=== PATIENT | male | born 1995 ===

== ENCOUNTER 2020-09-22 15:28 | Emergency (ER) | payer OTHER ==
[2020-09-22] MEDS ORDERED: Lidocaine 1% 10 ML MDV INJECT ONE (15:50)
[2020-09-22] MEDS ORDERED: Lidocaine HCl/PF 10 MG/ML SDV INJECT ONE (15:58)
[2020-09-22] MEDS ORDERED: Bacitracin Oint 1 GM U/D Packet TOP ONE (16:14)
--- NOTE | 2020-09-22 16:20 | EDM.PDOC ---
ED HPI GENERAL MEDICAL PROBLEM - General Chief Complaint: Laceration Stated Complaint: FINGER LACERATION Time Seen by Provider: 09/22/20 15:28 Source of Information: Reports: Patient History Limitations: Reports: No Limitations - History of Present Illness INITIAL COMMENTS - FREE TEXT/NARRATIVE: Patient states he was closing the Topper on his pickup bed when he caught his finger in the mechanics. Laceration over the PIP joint of the second finger. Tetanus up-to-date. Right Finger-Index Pain Score (Numeric/FACES): 8 - Related Data Allergies Allergy/AdvReac Type Severity Reaction Status Date / Time No Known Allergies Allergy Verified 09/22/20 15:39 Home Meds: Home Meds . [No Known Home Meds] 09/22/20 [History] Past Medical History - Past Health History Medical/Surgical History: Denies Medical/Surgical History - Infectious Disease History Infectious Disease History: Reports: Chicken Pox Social & Family History - Tobacco Use Tobacco Use Status *Q: Never Tobacco User - Caffeine Use Caffeine Use: Reports: Coffee - Recreational Drug Use Recreational Drug Use: No ED ROS GENERAL - Review of Systems Review Of Systems: Comprehensive ROS is negative, except as noted in HPI. ED EXAM, SKIN/RASH Exam: See Below Exam Limited By: No Limitations General Appearance: Alert, No Apparent Distress Ears: Normal External Exam Nose: Normal Inspection Throat/Mouth: Normal Inspection Head: Atraumatic, Normocephalic Neck: Normal Inspection Respiratory/Chest: No Respiratory Distress Cardiovascular: Normal Peripheral Pulses Back Exam: Normal Inspection Extremities: Other (Second digit dorsal PIP joint semicircular laceration and abrasion. Full range of motion of all joints of the right second digit, flex and extend. CMS intact distally.) Neurological: Alert Psychiatric: Normal Affect Lymphatic: No Adenopathy ED SKIN PROCEDURES - Laceration/Wound Repair Right Digit - 2nd (Index) Appearance: Superficial Distal NVT: Neuro & Vascular Intact Anesthetic Type: Local Local Anesthesia - Lidocaine (Xylocaine): 1% Plain Local Anesthetic Volume: 5cc Skin Prep: Chlorhexidine (Hibiciens) Exploration/Debridement/Repair: Wound Explored, In a Bloodless Field, Explored to Base Closed with: Sutures Lac/Wound length In cm: 3 Suture Size: 4-0 # of Sutures: 5 Suture Type: Nylon, Simple Course - Vital Signs Last Recorded V/S: Last Vital Signs Temp 36.5 C 09/22/20 15:40 Pulse 73 09/22/20 15:40 Resp 20 09/22/20 15:40 BP 135/63 09/22/20 15:40 Pulse Ox 97 09/22/20 15:40 - Orders/Labs/Meds Orders: Active Orders 24 hr Category Date Time Status Bacitracin [Bacitracin Oint 1 GM] Med 09/22/20 16:14 Once 1 dose TOP ONETIME ONE Meds: Medications Discontinued Medications Generic Name Dose Route Start Last Admin Trade Name Zachery PRN Reason Stop Dose Admin Lidocaine HCl 10 ml 09/22/20 15:50 09/22/20 15:57 Xylocaine 1% INJECT 09/22/20 15:51 Not Given ONETIME ONE Lidocaine HCl Confirm 09/22/20 15:52 09/22/20 15:57 Xylocaine-Mpf 1% Administered 09/22/20 15:53 Not Given Dose 10 ml .ROUTE .STK-MED ONE Lidocaine HCl 100 mg 09/22/20 15:58 09/22/20 16:02 Xylocaine-Mpf 1% Sdv INJECT 09/22/20 15:59 Not Given ONETIME ONE Lidocaine HCl 10 ml 09/22/20 16:01 09/22/20 16:02 Xylocaine-Mpf 1% INJECT 09/22/20 16:02 10 ml ONETIME ONE Administration Departure - Departure Time of Disposition: 16:22 Disposition: Home, Self-Care 01 Condition: Good Clinical Impression: Laceration - Discharge Information Referrals: PCP,None [Primary Care Provider] - [facility] [Outside] Additional Instructions: The following information is given to patients seen in the emergency department who are being discharged to home. This information is to outline your options for follow-up care. We provide all patients seen in our emergency department with a follow-up referral. The need for follow-up, as well as the timing and circumstances, are variable depending upon the specifics of your emergency department visit. If you don't have a primary care physician on staff, we will provide you with a referral. We always advise you to contact your personal physician following an emergency department visit to inform them of the circumstance of the visit and for follow-up with them and/or the need for any referrals to a consulting specialist. The emergency department will also refer you to a specialist when appropriate. This referral assures that you have the opportunity for follow-up care with a specialist. All of these measure are taken in an effort to provide you with optimal care, which includes your follow-up. Under all circumstances we always encourage you to contact your private physician who remains a resource for coordinating your care. When calling for follow-up care, please make the office aware that this follow-up is from your recent emergency room visit. If for any reason you are refused follow-up, please contact the [facility] Emergency Department at and asked to speak to the emergency department charge nurse. 1. Suture removal 10 to 14 days at walk-in clinic, emergency room or primary care clinic 2. For signs of infection: Redness, swelling, purulent drainage report promptly Sepsis Event Note (ED) - Evaluation Sepsis Screening Result: No Definite Risk - Focused Exam Vital Signs: Vital Signs Temp Pulse Resp BP Pulse Ox 09/22/20 15:40 36.5 C 73 20 135/63 97 - My Orders Last 24 Hours: My Active Orders 09/22/20 16:14 Bacitracin [Bacitracin Oint 1 GM] 1 dose TOP ONETIME ONE - Assessment/Plan Last 24 Hours: My Active Orders 09/22/20 16:14 Bacitracin [Bacitracin Oint 1 GM] 1 dose TOP ONETIME ONE
== END 2020-09-22 16:30 | disposition home or self-care (01) ==
LOC: MW.ED 15:28
DX: S61.210A Laceration without foreign body of right index finger without damage to nail, initial encounter (principal); W23.0XXA Caught, crushed, jammed, or pinched between moving objects, initial encounter
CPT/HCPCS: 12002; 99282; J2001

== ENCOUNTER 2021-03-03 06:34 | Day surgery (SDC) | payer OTHER ==
[~2021-03-03 06:34] MED LIST: Lactated Ringers 1,000 ML IV SCH; Sodium Chloride 0.9% 10 ML SDV IV PRN; Sodium Chloride 0.9% 10 ML Syringe FLUSH PRN; Sodium Chloride 0.9% 2.5 ML Syringe FLUSH PRN; ceFAZolin 1 GM in Premix Bag 1 BAG IV ONE; ceFAZolin 1 GM in Premix Bag 1 BAG IV SCH
[2021-03-03] MEDS ORDERED: Propofol 200 MG/20 ML SDV ONE (06:53)
[2021-03-03] MEDS ORDERED: Midazolam 1 MG/ML 2 ML SDV ONE (06:53)
[2021-03-03] MEDS ORDERED: fentaNYL 250 MCG/5 ML SDV ONE (06:53)
[2021-03-03] MEDS ORDERED: Ondansetron 4 MG/2 ML SDV ONE (06:57)
--- NOTE | 2021-03-03 07:22 | PCM.PREANE ---
Preanesthetic Assessment - Anesthesia/Transfusion/Family Hx Anesthesia History: No Prior Anesthesia Family History of Anesthesia Reaction: No Transfusion History: No Prior Transfusion(s) - Review of Systems General: No Symptoms Pulmonary: No Symptoms Cardiovascular: No Symptoms Gastrointestinal: No Symptoms Neurological: No Symptoms Other: Reports: None - Physical Assessment NPO Status Date: 03/03/21 NPO Status Time: 00:01 Vital Signs: Last Vital Signs Temp 97.5 F 03/03/21 06:48 Pulse 55 L 03/03/21 06:48 Resp 16 03/03/21 06:48 BP 112/75 03/03/21 06:48 Pulse Ox 98 03/03/21 06:48 Height: 6 ft 4 in Weight: 177 lb ASA Class: 1 Mental Status: Alert & Oriented x3 Airway Class: Mallampati = 2 Dentition: Reports: Normal Dentition ROM/Head Extension: Full Lungs: Clear to Auscultation, Normal Respiratory Effort Cardiovascular: Regular Rate, Regular Rhythm - Allergies Allergies/Adverse Reactions: Allergies Allergy/AdvReac Type Severity Reaction Status Date / Time No Known Allergies Allergy Verified 02/24/21 09:27 - Anesthesia Plan Pre-Op Medication Ordered: None - Acknowledgements Anesthesia Type Planned: General Anesthesia Pt an Appropriate Candidate for the Planned Anesthesia: Yes Alternatives and Risks of Anesthesia Discussed w Pt/Guardian: Yes Pt/Guardian Understands and Agrees with Anesthesia Plan: Yes Additional Comments: npo after mn no cv or pulmonary or any medical issues tob none etoh none par no questions PreAnesthesia Questionnaire - Past Health History Medical/Surgical History: Denies Medical/Surgical History HEENT History: Reports: Other (See Below) Other HEENT History: wears glasses Musculoskeletal History: Reports: Fracture Other Musculoskeletal History: hyx of fx left wrist and right ankle Neurological History: Reports: Concussion - Infectious Disease History Infectious Disease History: Reports: Chicken Pox - Past Surgical History Head Surgeries/Procedures: Reports: None - SUBSTANCE USE Tobacco Use Status *Q: Never Tobacco User Recreational Drug Use History: No - HOME MEDS Home Medications: Home Meds . [No Known Home Meds] 09/22/20 [History] - CURRENT (IN HOUSE) MEDS Current Meds: Current Medications Lactated Ringer's (Ringers, Lactated) 1,000 mls @ 100 mls/hr IV ASDIRECTED [facility] Last Admin: 03/03/21 06:54 Dose: 100 mls/hr Documented by: Cefazolin Sodium/Dextrose 1 gm (/ Premix) 50 mls @ 100 mls/hr IV ONCALL KRISS Sodium Chloride (Sodium Chloride 0.9% 10 Ml Syringe) 10 ml FLUSH ASDIRECTED PRN PRN Reason: Keep Vein Open Sodium Chloride (Sodium Chloride 0.9% 2.5 Ml Syringe) 2.5 ml FLUSH ASDIRECTED PRN PRN Reason: Keep Vein Open Sodium Chloride (Sodium Chloride 0.9% 10 Ml Sdv) 10 ml IV ASDIRECTED PRN PRN Reason: IV Use Discontinued Medications Fentanyl (Fentanyl 250 Mcg/5 Ml Sdv) Confirm Administered Dose 250 mcg .ROUTE .STK-MED ONE Stop: 03/03/21 06:54 Lactated Ringer's (Ringers, Lactated) 1,000 mls @ 100 mls/hr IV ASDIRECTED KRISS Cefazolin Sodium/Dextrose 1 gm (/ Premix) 50 mls @ 100 mls/hr IV ONETIME ONE Stop: 02/16/21 06:29 Lidocaine HCl (Lidocaine 1% 5 Ml Sdv) Confirm Administered Dose 5 ml .ROUTE .STK-MED ONE Stop: 03/03/21 07:00 Midazolam HCl (Midazolam 1 Mg/Ml 2 Ml Sdv) Confirm Administered Dose 2 mg .ROUTE .STK-MED ONE Stop: 03/03/21 06:54 Ondansetron HCl (Ondansetron 4 Mg/2 Ml Sdv) Confirm Administered Dose 4 mg .ROUTE .STK-MED ONE Stop: 03/03/21 06:58 Propofol (Propofol 200 Mg/20 Ml Sdv) Confirm Administered Dose 200 mg .ROUTE .STK-MED ONE Stop: 03/03/21 06:54 Sodium Chloride (Sodium Chloride 0.9% 10 Ml Syringe) 10 ml FLUSH ASDIRECTED PRN PRN Reason: Keep Vein Open Sodium Chloride (Sodium Chloride 0.9% 2.5 Ml Syringe) 2.5 ml FLUSH ASDIRECTED PRN PRN Reason: Keep Vein Open Sodium Chloride (Sodium Chloride 0.9% 10 Ml Sdv) 10 ml IV ASDIRECTED PRN PRN Reason: IV Use
[2021-03-03] MEDS ORDERED: ceFAZolin 1 GM Vial ONE ×2 (07:29→08:23)
[2021-03-03] MEDS ORDERED: Sodium Chloride 0.9% 20 ML ONE (07:29)
[2021-03-03] MEDS ORDERED: Bupivacaine 0.25% 10 ML SDV ONE (07:39)
[2021-03-03] MEDS ORDERED: Bupivacaine 0.5% 10 ML SDV ONE (07:39)
[2021-03-03] MEDS ORDERED: Lidocaine 1% with EPINEPHrine 1:100,000 20 ML MDV ONE (07:39)
[2021-03-03] MEDS ORDERED: Lidocaine 1% 20 ML MDV ONE (07:40)
[2021-03-03] MEDS ORDERED: Dexamethasone 4 MG/ML 5 ML MDV ONE (08:24)
[2021-03-03] MEDS ORDERED: fentaNYL 100 MCG/2 ML SDV IVPUSH PRN (09:18)
[2021-03-03] MEDS ORDERED: Ketorolac 30 MG/ML SDV IM ONE (09:59)
[2021-03-03] MEDS ORDERED: Acetaminophen 1,000 MG in Premix Bag 1 BAG IV ONE (10:00)
--- NOTE | 2021-03-03 10:28 | PCM.POSTAN ---
POST ANESTHESIA ASSESSMENT - VITAL SIGNS Vital Signs: Last Vital Signs Temp 36.3 C 03/03/21 09:38 Pulse 61 03/03/21 10:18 Resp 8 L 03/03/21 10:18 BP 127/60 03/03/21 10:18 Pulse Ox 96 03/03/21 10:18 - RESPIRATORY Respiratory Status: Respiratory Rate WNL - CARDIOVASCULAR CV Status: Pulse Rate WNL - GASTROINTESTINAL GI Status: No Symptoms - POST OP HYDRATION Hydration Status: Adequate & Stable
--- NOTE | 2021-03-03 11:11 | OR ---
SURGEON: Arielle Bowman M.D. DATE OF PROCEDURE: 03/03/2021 PREOPERATIVE DIAGNOSIS: Bilateral varicoceles. POSTOPERATIVE DIAGNOSIS: Bilateral varicoceles. OPERATION: Bilateral spermatic vein ligation. DESCRIPTION: The patient was given general anesthesia. He was in the supine position. External genital and lower abdomen were all prepped and draped in sterile drapes. A small incision was made in the left groin. The dissection was carried out until the external oblique aponeurosis was opened, and the cord structures were delivered. There was a cord lipoma that was excised, and 2 medium-sized veins were identified and ligated. The spermatic artery was spared and pulse could be seen after the ligation was done in the distal part of the cord. With that done, external oblique aponeurosis was closed with a 3-0 silk. Subcutaneous tissues were reapproximated with 3-0 chromic and skin was closed with 4-0 subcuticular nylon. The exact same thing was done on the right side. The patient tolerated both procedures well and was moved to recovery room in good condition. He will come to the office in 6 days to have the sutures removed. CARLOS ALBERTO / CYNTHIA /[id number]
--- NOTE | 2021-03-03 12:03 | PCM48HPAN ---
Post Anesthesia Note - EVALUATION WITHIN 48HRS OF ANESTHETIC Vital Signs in Normal Range: Yes Patient Participated in Evaluation: Yes Respiratory Function Stable: Yes Airway Patent: Yes Cardiovascular Function Stable: Yes Hydration Status Stable: Yes Pain Control Satisfactory: Yes Nausea and Vomiting Control Satisfactory: Yes Mental Status Recovered: Yes Vital Signs: Last Vital Signs Temp 97.3 F 03/03/21 10:25 Pulse 54 L 03/03/21 11:40 Resp 14 03/03/21 11:40 BP 118/62 03/03/21 11:40 Pulse Ox 98 03/03/21 11:40
== END 2021-03-03 12:20 | disposition home or self-care (01) ==
LOC: MW.SDS 06:34
PROVIDERS: ATTEND Urology
DX: I86.1 Scrotal varices (principal); N50.89 Other specified disorders of the male genital organs; D17.6 Benign lipomatous neoplasm of spermatic cord
CPT/HCPCS: 55530; 88302; J0131; J0690; J1100; J1885; J2250; J2405; J2704; J3010; J7120; 00840; J3490